=== PATIENT | female | born 1950 | race Caucasian/White ===

== ENCOUNTER 2022-06-17 14:32 | Inpatient (IN) | payer OTHER ==
[~2022-06-17] VITALS: Ht 167.6 cm; Wt 60.1 kg
[~2022-06-17 14:32] MED LIST: SODIUM CHL 0.9% 500 ML IV ONE
[2022-06-17] MEDS ORDERED: CLOPIDOGREL BISULFATE 75 MG TAB PO ONE (14:45)
[2022-06-17] MEDS ORDERED: HEPARIN DRIP/D5W 100UNITS/ML 250 ML IV SCH (15:00)
[2022-06-17] MEDS ORDERED: HEPARIN IN NS 1000Units/500mL 1,500 ML ONE (15:00)
[2022-06-17] MEDS ORDERED: HEPARIN SODIUM (PORCINE) 5000 UNITS/ML 1ML VIAL IV ONE (15:00)
[2022-06-17] MEDS ORDERED: LIDOCAINE 2%HCL (LOCAL ANESTH.) INJ 20ML MDV ONE (15:00)
[2022-06-17] MEDS ORDERED: IODIXANOL 320MG/ML 100ML BTL IV ONE ×2 (15:00→15:54)
[2022-06-17] MEDS ORDERED: HEPARIN DRIP/D5W 100UNITS/ML 250 ML IV ONE (15:08)
[2022-06-17 15:09] LABS: Basophils # (auto) 0 10 ^3/uL (0-0.2); Basophils % (auto) 0.4 % (0.0-2.0); Eosinophils # (auto) 0.1 10 ^3/uL (0-0.8); Eosinophils % (auto) 0.8 % (0.0-7.0); Hematocrit 36.2 % (36.0-46.0); Hemoglobin 11.9 g/dL (12.2-16.2); Lymphocytes # (auto) 1.2 10 ^3/uL (0.4-5.4); Lymphocytes % (auto) 12.9 % (10.0-50.0); Mean Corpuscular Hemoglobin 31.2 pg (28.0-32.0); Mean Corpuscular Hgb Conc. 32.9 g/dL (32.0-36.0); Mean Corpuscular Volume 94.8 fL (80.0-100.0); Monocytes # (auto) 0.1 10 ^3/uL (0-1.3); Neutrophils # (auto) 7.9 10 ^3/uL (1.6-8.6); Neutrophils % (auto) 84.9 % (37.0-80.0); Red Blood Cells 3.82 10^6/uL (4.0-5.20); Red Cell Distribution Width 17.6 % (11.8-14.3); White Blood Cell 9.2 10^3/uL (4.4-10.8)
[2022-06-17] MEDS ORDERED: SODIUM CHLORIDE 0.9% 1,000 ML IV ONE (15:15)
[2022-06-17] MEDS ORDERED: SODIUM CHL 0.9% 50 ML ONE (15:18)
[2022-06-17] MEDS ORDERED: MIDAZOLAM HCL 2MG/2ML 2ml VIAL (1mg/ml) ONE (15:18)
[2022-06-17] MEDS ORDERED: fentaNYL CITRATE 100 MCG/2 ML VL ONE (15:18)
[2022-06-17] MEDS ORDERED: ANGIOMAX 250 MG VIAL IV ONE (15:18)
[2022-06-17 15:25] LABS: INR 1.01 (0.9-1.15); Partial Thromboplastin Time 25.2 sec (24.6-33.4)
[2022-06-17 15:28] LABS: Albumin 3.4 g/dL (3.4-5.0); BUN/Creatinine Ratio 25.6; Calcium 8.3 mg/dL (8.5-10.1); Magnesium 2.2 mg/dL (1.6-2.6)
[2022-06-17 15:31] LABS: Bilirubin, Total 0.8 mg/dL (0.2-1.0)
[2022-06-17 15:43] LABS: Potassium 2.7 mmol/L (3.5-5.1)
[2022-06-17] MEDS ORDERED: POTASSIUM CHL 20MEQ/100ML 100 ML IV ONE ×2 (15:47→18:00)
[2022-06-17] MEDS ORDERED: ONDANSETRON HCL 4 MG/2 ML VIAL IV PRN ×2 (16:00→18:00)
[2022-06-17] MEDS ORDERED: HYDROcodone-ACET 5/325MG TAB PO PRN ×2 (16:00→18:00)
[2022-06-17] MEDS ORDERED: DOCUSATE SOD 100 MG CAP PO PRN (16:00)
[2022-06-17] MEDS ORDERED: MORPHINE SULFATE INJ 2 MG/ml SYRG IV PRN (16:00)
[2022-06-17] MEDS ORDERED: ACETAMINOPHEN 325 MG TAB PO PRN (16:00)
[2022-06-17] MEDS ORDERED: NITROGLYCERIN 0.4 MG SL TAB SL PRN (16:00)
[2022-06-17] MEDS ORDERED: HYDROmorphone HCL 2 MG/ML VL/or syr IV PRN (16:00)
[2022-06-17] MEDS ORDERED: ATROPINE SULF 1 MG/10ml SYR ONE (16:22)
[2022-06-17] MEDS ORDERED: CLOPIDOGREL 300 MG TAB ONE (17:12)
[2022-06-17] MEDS ORDERED: MILK OF MAGNESIA 30ML SUSP PO PRN (18:00)
[2022-06-17 18:29] VITALS: BP 162/92
[2022-06-17 18:46] VITALS: BP 165/94
[2022-06-17 19:07] VITALS: BP 138/93
[2022-06-17] MEDS: SODIUM CHLORIDE 0.9% 1,000 ML IV SCH ×2 (19:41→23:00)
[2022-06-17 19:45] VITALS: BP 165/94
[2022-06-17] MEDS ORDERED: TEMAZEPAM 15 MG CAP PO ONE (21:30)
[2022-06-17 22:00] VITALS: BP 134/85
[2022-06-17] MEDS: ATORVASTATIN 20 MG TAB PO SCH (22:17)
[2022-06-17] MEDS: SODIUM CHLOR 0.9% PF (SALINE LOCK) 10ML VIAL/SYR IV SCH (22:17)
[2022-06-17] MEDS: PANTOPRAZOLE 40 MG TAB PO SCH (22:17)
[2022-06-17] MEDS: METOPROLOL TARTRATE 25 MG TAB PO SCH (22:17)
[2022-06-18 05:00] VITALS: BP 125/77
[2022-06-18] MEDS: SODIUM CHLOR 0.9% PF (SALINE LOCK) 10ML VIAL/SYR IV SCH ×3 (06:00→20:31)
[2022-06-18 07:19] LABS: Basophils # (auto) 0 10 ^3/uL (0-0.2); Basophils % (auto) 0.6 % (0.0-2.0); Eosinophils # (auto) 0.1 10 ^3/uL (0-0.8); Eosinophils % (auto) 0.7 % (0.0-7.0); Hematocrit 31.6 % (36.0-46.0); Lymphocytes # (auto) 1.8 10 ^3/uL (0.4-5.4); Lymphocytes % (auto) 22.7 % (10.0-50.0); Mean Corpuscular Hemoglobin 33.3 pg (28.0-32.0); Mean Corpuscular Volume 95.2 fL (80.0-100.0); Monocytes # (auto) 0.1 10 ^3/uL (0-1.3); Monocytes % (auto) 1.4 % (0.0-12.0); Neutrophils # (auto) 5.8 10 ^3/uL (1.6-8.6); Neutrophils % (auto) 74.6 % (37.0-80.0); Red Blood Cells 3.32 10^6/uL (4.0-5.20); Red Cell Distribution Width 17.9 % (11.8-14.3); White Blood Cell 7.8 10^3/uL (4.4-10.8)
[2022-06-18 07:36] LABS: BUN/Creatinine Ratio 19.8; Calcium 8.3 mg/dL (8.5-10.1)
[2022-06-18 07:43] LABS: Potassium 2.7 mmol/L (3.5-5.1)
[2022-06-18 09:00] VITALS: BP 118/84
[2022-06-18] MEDS: CLOPIDOGREL BISULFATE 75 MG TAB PO SCH (09:05)
[2022-06-18] MEDS: ASPirin-EC 81 mg tab PO SCH (09:06)
[2022-06-18] MEDS: METOPROLOL TARTRATE 25 MG TAB PO SCH ×2 (09:06→22:00)
[2022-06-18] MEDS: PANTOPRAZOLE 40 MG TAB PO SCH ×2 (09:06→20:31)
[2022-06-18] MEDS: POTASSIUM CHL 20MEQ/100ML 100 ML IV SCH ×3 (09:07→14:37)
[2022-06-18] MEDS ORDERED: ATORVASTATIN 20 MG TAB PO SCH (10:00)
[2022-06-18] MEDS ORDERED: CLOPIDOGREL BISULFATE 75 MG TAB PO SCH (10:00)
[2022-06-18] MEDS ORDERED: ASPirin 81 mg TAB PO SCH (10:00)
[2022-06-18] MEDS ORDERED: TEMAZEPAM 15 MG CAP PO PRN (11:45)
[2022-06-18] MEDS ORDERED: POTASSIUM CHL 20 Meq TABLET PO ONE (11:45)
[2022-06-18 13:00] VITALS: BP 126/77
[2022-06-18 13:46] LABS: Calcium 7.8 mg/dL (8.5-10.1)
[2022-06-18 13:49] LABS: Potassium 2.6 mmol/L (3.5-5.1)
[2022-06-18] MEDS: SODIUM CHLORIDE 0.9% 1,000 ML IV SCH (14:37)
[2022-06-18] MEDS ORDERED: POTASSIUM EFFERVESENT TAB 25 MEQ PO ONE (15:30)
[2022-06-18 17:00] VITALS: BP 149/89
[2022-06-18 18:10] LABS: Magnesium 1.9 mg/dL (1.6-2.6)
[2022-06-18 19:41] LABS: BUN/Creatinine Ratio 18.8; Blood Urea Nitrogen 15 mg/dL (7-18); Calcium 7.9 mg/dL (8.5-10.1); Chloride 118 mmol/L (98-107); GFR African American 91 mL/min; GFR Non-African American 76 mL/min; Glucose 114 mg/dL (74-106); Potassium 3.1 mmol/L (3.5-5.1); Sodium 144 mmol/L (136-145)
[2022-06-18 20:07] LABS: Anion Gap 9 (5-15); Carbon Dioxide 17 mmol/L (21-32)
[2022-06-18] MEDS: ATORVASTATIN 20 MG TAB PO SCH (20:31)
[2022-06-18 22:00] VITALS: BP 112/72
[2022-06-19 05:00] VITALS: BP 128/70
[2022-06-19] MEDS: SODIUM CHLOR 0.9% PF (SALINE LOCK) 10ML VIAL/SYR IV SCH ×2 (06:00→16:45)
[2022-06-19 09:00] VITALS: BP 151/87
[2022-06-19] MEDS: ASPirin-EC 81 mg tab PO SCH (10:31)
[2022-06-19] MEDS: PANTOPRAZOLE 40 MG TAB PO SCH (10:32)
[2022-06-19] MEDS: CLOPIDOGREL BISULFATE 75 MG TAB PO SCH (10:32)
[2022-06-19] MEDS: METOPROLOL TARTRATE 25 MG TAB PO SCH (10:33)
[2022-06-19] MEDS ORDERED: POTASSIUM CHL 20 Meq TABLET PO ONE ×2 (10:45→12:00)
[2022-06-19] MEDS ORDERED: NICO14DI29 TOP (10:52)
[2022-06-19 13:00] VITALS: BP 124/65
[2022-06-19 14:03] LABS: Calcium 8.9 mg/dL (8.5-10.1); Potassium 3.3 mmol/L (3.5-5.1)
[2022-06-19 14:06] LABS: BUN/Creatinine Ratio 16.3
[2022-06-19] MEDS ORDERED: LISI-275 PO (14:31)
[2022-06-19] MEDS ORDERED: CLOP75TA70 PO (14:31)
[2022-06-19] MEDS ORDERED: ASPI-543 PO (14:31)
[2022-06-19] MEDS ORDERED: MET25T PO (14:31)
[2022-06-19] MEDS ORDERED: ATO40T PO (14:33)
[2022-06-19 15:40] VITALS: BP 124/65
== END 2022-06-19 17:00 | disposition home or self-care (01) | DRG 248 ==
LOC: ER 14:32 → TELE 16:00 → TELE-WESTW 18:29
PROVIDERS: ADMIT Internal Medicine; ATTEND Internal Medicine
PROC: B2111ZZ Fluoroscopy of Multiple Coronary Arteries using Low Osmolar Contrast (ICD-10-PCS; principal; 2022-06-17)
PROC: 02703DZ Dilation of Coronary Artery, One Artery with Intraluminal Device, Percutaneous Approach (ICD-10-PCS; 2022-06-17)
PROC: 02703ZZ Dilation of Coronary Artery, One Artery, Percutaneous Approach (ICD-10-PCS; 2022-06-17)
PROC: B2151ZZ Fluoroscopy of Left Heart using Low Osmolar Contrast (ICD-10-PCS; 2022-06-17)
PROC: 4A023N7 Measurement of Cardiac Sampling and Pressure, Left Heart, Percutaneous Approach (ICD-10-PCS; 2022-06-17)
PROC: 04HK33Z Insertion of Infusion Device into Right Femoral Artery, Percutaneous Approach (ICD-10-PCS; 2022-06-17)
PROC: B2101ZZ Fluoroscopy of Single Coronary Artery using Low Osmolar Contrast (ICD-10-PCS; 2022-06-17)
PROC: B31H1ZZ Fluoroscopy of Right Upper Extremity Arteries using Low Osmolar Contrast (ICD-10-PCS; 2022-06-17)
PROC: B41FZZZ Fluoroscopy of Right Lower Extremity Arteries (ICD-10-PCS; 2022-06-17)
DX: I21.19 ST elevation (STEMI) myocardial infarction involving other coronary artery of inferior wall (principal); I50.31 Acute diastolic (congestive) heart failure; C34.90 Malignant neoplasm of unspecified part of unspecified bronchus or lung; F17.210 Nicotine dependence, cigarettes, uncomplicated; I25.10 Atherosclerotic heart disease of native coronary artery without angina pectoris; E87.6 Hypokalemia; R00.1 Bradycardia, unspecified; I11.0 Hypertensive heart disease with heart failure; Z90.710 Acquired absence of both cervix and uterus; Z92.21 Personal history of antineoplastic chemotherapy; Z85.118 Personal history of other malignant neoplasm of bronchus and lung; Z82.49 Family history of ischemic heart disease and other diseases of the circulatory system; Z79.02 Long term (current) use of antithrombotics/antiplatelets; Z79.899 Other long term (current) drug therapy
CPT/HCPCS: 36415; 71045; 80048; 80053; 80061; 83735; 83880; 84132; 84484; 85025; 85610; 85730; 92920; 92928; 93005; 93306; 93458; 96361; 96374; 99152; 99153; 99291; C1725; C1874; C1887; G0378; J2250; J3480; Q9967

== ENCOUNTER 2023-03-22 15:40 | Emergency (ER) | payer OTHER ==
[~2023-03-22] VITALS: Ht 170.2 cm; Wt 59.0 kg
[~2023-03-22 15:40] MED LIST changes: +ASPI-543 PO; +ATO40T PO; +CLOP75TA70 PO; +LISI-275 PO; +MET25T PO; +NICO14DI29 TOP; -SODIUM CHL 0.9% 500 ML IV ONE
[2023-03-22] MEDS ORDERED: SODIUM CHLORIDE 0.9% 1,000 ML IV ONE (16:45)
[2023-03-22] MEDS ORDERED: ONDANSETRON ODT 4 MG TAB PO ONE (16:45)
[2023-03-22 17:17] LABS: Basophils # (auto) 0.1 10 ^3/uL (0-0.2); Basophils % (auto) 0.8 % (0.0-2.0); Eosinophils # (auto) 0.1 10 ^3/uL (0-0.8); Hematocrit 47.6 % (36.0-46.0); Hemoglobin 16.1 g/dL (12.2-16.2); Lymphocytes # (auto) 0.6 10 ^3/uL (0.4-5.4); Lymphocytes % (auto) 8.2 % (10.0-50.0); Mean Corpuscular Hgb Conc. 33.9 g/dL (32.0-36.0); Mean Corpuscular Volume 94.6 fL (80.0-100.0); Monocytes # (auto) 0.3 10 ^3/uL (0-1.3); Monocytes % (auto) 4.5 % (0.0-12.0); Neutrophils # (auto) 5.9 10 ^3/uL (1.6-8.6); Neutrophils % (auto) 85.5 % (37.0-80.0); Red Blood Cells 5.03 10^6/uL (4.0-5.20); Red Cell Distribution Width 14.4 % (11.8-14.3); White Blood Cell 6.9 10^3/uL (4.4-10.8)
[2023-03-22 17:32] LABS: Albumin 3.7 g/dL (3.4-5.0); Calcium 9.1 mg/dL (8.5-10.1); Potassium 3.7 mmol/L (3.5-5.1)
[2023-03-22 17:36] LABS: BUN/Creatinine Ratio 15.6 (10.0-20.0); Bilirubin, Total 0.3 mg/dL (0.2-1.0); Total Protein 6.4 g/dL (6.4-8.2)
[2023-03-22] MEDS ORDERED: IOHEXOL 300 MG/ML 100ML BOTTLE IJ ONE (18:14)
[2023-03-22 22:23] LABS: Urine Bacteria FEW /hpf (None Seen); Urine Blood 1+ /uL (Negative); Urine Mucus FEW (None Seen); Urine Specific Gravity 1.045 (1.001-1.035); Urine WBC 51 /hpf (0 - 5)
[2023-03-22] MEDS ORDERED: ONDA-144 PO (22:44)
[2023-03-22] MEDS ORDERED: ACET-1158 PO (22:44)
[2023-03-22] MEDS ORDERED: CEPH-510 PO (22:44)
[2023-03-22] MEDS ORDERED: cefTRIAXone SOD 1,000 MG VL IM ONE (22:45)
[2023-03-22 23:10] VITALS: BP 131/96
== END 2023-03-22 23:20 | disposition home or self-care (01) ==
LOC: ER 15:40 → EDUNIT# 15:40 → EDBD 15:40 → ER 23:19
DX: N39.0 Urinary tract infection, site not specified (principal); F17.210 Nicotine dependence, cigarettes, uncomplicated; Z90.710 Acquired absence of both cervix and uterus; Z88.1 Allergy status to other antibiotic agents
CPT/HCPCS: 36415; 71260; 74177; 80053; 81001; 82962; 83735; 83880; 84484; 85025; 85652; 93005; 96360; 96361; 96372; 99285; J0696; J7030; Q0162; Q9967